=== PATIENT | female | born 1940 | race Caucasian/White ===

== ENCOUNTER → 2018-03-03 | Outpatient (CLI) | payer MEDICARE ==
[~2018-03-03] MED LIST: ACET325 PO; ASPI325EC PO; CALCAVITDA PO; CHRO200 PO; CODACE30 PO; DIPH50 PO; IBUP600 PO; MULVITMIND PO; ONDA4ODT MM; PROBIOTIC1 EAC1 PO; TRAM50 PO; Zofran Odt4 MG PO
== END | disposition home or self-care (01) ==
LOC: PLD 09:57 → LAB SHORT 09:57
DX: L57.8 Other skin changes due to chronic exposure to nonionizing radiation (principal); L08.89 Other specified local infections of the skin and subcutaneous tissue
CPT/HCPCS: 88305

== ENCOUNTER 2020-02-04 08:58 | Observation (INO) | payer MEDICARE ==
[~2020-02-04] VITALS: Ht 160 cm; Wt 52.2 kg
[2020-02-04 09:21] LABS: BASOPHILS ABSOLUTE AUTO 0.03 K/mm3 (0.00-0.23); BASOPHILS PERCENT AUTO 1 % (0-2); EOSINOPHILS PERCENT AUTO 2 % (0-6); Hematocrit 44.7 % (33.0-51.0); IMMATURE GRAN ABSOLUTE AUTO 0.02 K/mm3 (0.00-0.10); IMMATURE GRAN PERCENT AUTO 0 % (0-1); LYMPHOCYTES ABSOLUTE AUTO 1.34 K/mm3 (0.84-5.20); LYMPHOCYTES PERCENT AUTO 29 % (21-46); MONOCYTES ABSOLUTE AUTO 0.26 K/mm3 (0.16-1.47); MONOCYTES PERCENT AUTO 6 % (4-13); Mean Corpuscular HGB 30.1 pg (26.0-34.0); Mean Corpuscular HGB Conc 31.3 g/dL (31.5-36.5); Mean Corpuscular Volume 96 fL (80-100); Mean Platelet Volume 8.6 fL (9.1-12.4); NEUTROPHILS ABSOLUTE AUTO 2.91 K/mm3 (1.96-9.15); NEUTROPHILS PERCENT AUTO 63 % (41-73); Platelet Count 224 K/mm3 (150-400); RDW Coefficient Variation 11.8 % (11.7-14.2); RDW Standard Deviation 41.8 fL (35.1-46.3); Red Blood Cell Count 4.65 M/mm3 (3.80-5.20); White Blood Cell Count 4.66 K/mm3 (4.00-11.30)
[2020-02-04 09:42] LABS: Alanine Aminotransfer (ALT/SGP 25 U/L (12-78); Albumin, Blood 3.6 g/dL (3.4-5.0); Albumin/Globulin Ratio 0.8 (0.8-1.8); Alk Phos 80 U/L (50-136); Anion Gap 5 mmol/L (6-16); Aspartate Aminotrans (AST/SGOT 20 U/L (12-37); Bilirubin, Total 0.4 mg/dL (0.1-1.0); Blood Urea Nitrogen 15 mg/dL (8-24); CO2, Blood 26 mmol/L (21-32); Calcium, Blood 8.8 mg/dL (8.5-10.1); Chloride, Blood 109 mmol/L (98-108); Creatinine, Blood 0.71 mg/dL (0.40-1.00); Globulin, Blood 4.3 g/dL (2.2-4.0); Glomerular Filtration Rate >60 (60-); Glucose, Blood 148 mg/dL (70-99); Potassium, Blood 3.7 mmol/L (3.5-5.5); Sodium, Blood 140 mmol/L (136-145); Total Protein, Blood 7.9 g/dL (6.4-8.2)
[2020-02-04 09:43] LABS: Troponin I <0.015 ng/mL (0.000-0.040)
[2020-02-04 12:41] LABS: CHOL/HDL RATIO 3.4; Cholesterol 189 mg/dL (50-200); HDL Cholesterol 55 mg/dL (>39); LDL/HDL RATIO 2.1; Low Density Lipoprotein Chol 116 mg/dL (0-110); Triglycerides 88 mg/dL (30-160); Very Low Density Lipoprot Chol 17 mg/dL (6-32)
--- NOTE | 2020-02-04 13:05 | NUR ---
PT ARRIVED TO ROOM 333 FROM ER ACCOMPANIED BY SPOUSE. PT A/O X4 AND INDEPENDENT IN ROOM WITH ADL'S. ORIENTED TO ROOM AND CALL SYSTEM. PT DENIES PAIN AT THIS TIME, RESP EVEN AND UNLABORED, ON ROOM AIR. BED IN LOWEST POSITION AND CALL [place] IN REACH. WILL MONITOR.
--- NOTE | 2020-02-04 15:29 | NUR ---
Echocardiogram completed.
--- NOTE | 2020-02-04 18:36 | NUR ---
NO ACUTE CHANGES SINCE ARRIVAL TO ROOM, WILL CONTINUE TO MONITOR AND REPORT TO ONCOMING RN
--- NOTE | 2020-02-05 03:40 | NUR ---
SHIFT SUMMARY A/O, ABLE TO MAKE NEEDS KNOWN. COOPERATIVE WITH CARE. CALLS AND ANSWERS QUESTIONS APPROPRIATELY. INDEPENDENT IN ROOM. NO C/O CP OR SOB T/O NIGHT. TELE RUNNING SR /c PAC IN 70'S PER PCU GRILL COOK. APPEARED TO REST MUCH OF SHIFT. NO ACUTE CHANGES NOTED OVERNIGHT. BED IN LOWEST POSITION. CALL LIGHT AND BELONGINGS WITHIN REACH. WCTM. REPORT TO ONCOMING RN.
--- NOTE | 2020-02-05 11:04 | NUR ---
IV REMOVED. DISCHARGE INSTRUCTIONS GIVEN TO THE PATIENT. NO ACUTE CONCERNS AT TIME OF DISCAHRGE. PATIENT REQUESTED TO WALK INSTEAD OF BE WHEELED OUT. WALKED OUT WITH SPOUSE AND SUPERINTENDENT TESTS.
== END 2020-02-05 11:06 | disposition home or self-care (01) ==
LOC: ER 08:58 → MEDS 08:59 → ENPENDDIS 02-05 10:00 → MEDS 02-05 11:06
PROVIDERS: Emergency Medicine; ADMIT Internal Medicine
DX: R07.89 Other chest pain (principal); R03.0 Elevated blood-pressure reading, without diagnosis of hypertension; Z88.5 Allergy status to narcotic agent; Z88.0 Allergy status to penicillin; Z88.2 Allergy status to sulfonamides; Z88.8 Allergy status to other drugs, medicaments and biological substances; Z88.1 Allergy status to other antibiotic agents; I10 Essential (primary) hypertension; Z79.82 Long term (current) use of aspirin; Z79.899 Other long term (current) drug therapy
CPT/HCPCS: 36415; 71046; 80053; 80061; 84484; 85025; 93005; 93010; 93306; 96372; 99285-25; G0378; J1650

== ENCOUNTER → 2020-04-19 | Outpatient (CLI) | payer MEDICARE | LOC: LAB SHORT 19:01 → LAB 19:01 | DX: R30.0 Dysuria (principal) | CPT/HCPCS: 87077; 87086; 87186 ==

== ENCOUNTER → 2020-05-12 | Outpatient (CLI) | payer MEDICARE | END | disposition home or self-care (01) | LOC: LAB SHORT 14:53 → LAB 14:53 | DX: R30.0 Dysuria (principal) | CPT/HCPCS: 87077; 87086; 87186 ==

== ENCOUNTER → 2020-05-23 | Outpatient (CLI) | payer MEDICARE | END | disposition home or self-care (01) | LOC: LAB 19:20 → LAB SHORT 19:20 | DX: R30.0 Dysuria (principal) | CPT/HCPCS: 87077; 87086; 87186 ==

== ENCOUNTER → 2020-05-25 | Outpatient (CLI) | payer MEDICARE ==
[2020-05-25 12:10] LABS: Source, Urine Clean Catch
[2020-05-25 16:32] LABS: Bilirubin, Urine Neg (Neg); Blood, Urine 1+ (Neg); Glucose Qualitative, Urine Neg (Neg); Ketones, Urine Neg (Neg); Leukocyte Esterase, Urine 3+ (Neg); Nitrite, Urine Pos (Neg); Protein, Urine Neg (Neg); Urobilinogen, Urine NORM (Normal)
[2020-05-25 16:39] LABS: Appearance, Urine Hazy (Clear); Color, Urine Yellow (P-Yellow)
[2020-05-25 16:40] LABS: Bacteria Many /hpf; Squamous Epithelial Cells Few /hpf (Few); White Blood Cells, Urine 50-100 /hpf (0-5)
== END | disposition home or self-care (01) ==
LOC: LAB 12:08 → LAB SHORT 12:08
PROVIDERS: Family Medicine
DX: N20.0 Calculus of kidney (principal)
CPT/HCPCS: 81001; 87077; 87086; 87186

== ENCOUNTER 2022-02-27 08:56 | Day surgery (SDC) | payer MEDICARE ==
[~2022-02-27] VITALS: Ht 160 cm; Wt 53.9 kg
--- NOTE | 2022-02-27 09:55 | NUR ---
02/27/22 0955 Yesy Mcfadden @[id number], LEONARD @ [id number]
--- NOTE | 2022-02-27 11:20 | NUR ---
02/27/22 1120 DANY MARTINEZ PT USED BATHROOM PRIOR TO D/C
== END 2022-02-27 11:20 | disposition home or self-care (01) ==
LOC: ORSCSDS 08:56
PROVIDERS: Ophthalmology
PROC: 08RK3JZ Replacement of Left Lens with Synthetic Substitute, Percutaneous Approach (ICD-10-PCS; principal; 2022-02-27 10:30)
DX: H25.13 Age-related nuclear cataract, bilateral (principal); I10 Essential (primary) hypertension
CPT/HCPCS: J1100; J2001; J2250; J2405; J3010; J3301; J7040; V2632

== ENCOUNTER 2022-03-22 06:09 | Day surgery (SDC) | payer MEDICARE ==
[~2022-03-22] VITALS: Ht 160 cm; Wt 53.9 kg
--- NOTE | 2022-03-22 06:38 | NUR ---
03/22/22 0638 Mariam Smiley RIGHT EYE @0634 LEONARD RIGHT EYE @ 0635 BY [email or web address]
== END 2022-03-22 08:41 | disposition home or self-care (01) ==
LOC: ORSCSDS 06:09
PROVIDERS: Ophthalmology
PROC: 08RJ3JZ Replacement of Right Lens with Synthetic Substitute, Percutaneous Approach (ICD-10-PCS; principal; 2022-03-22 07:30)
DX: H25.11 Age-related nuclear cataract, right eye (principal); Z96.1 Presence of intraocular lens; H35.30 Unspecified macular degeneration; H40.059 Ocular hypertension, unspecified eye; I48.91 Unspecified atrial fibrillation; I10 Essential (primary) hypertension
CPT/HCPCS: J1100; J2001; J2250; J2405; J3301; J7040; V2632

== ENCOUNTER → 2023-03-14 | Outpatient (CLI) | payer MEDICARE ==
[~2023-03-14] MED LIST changes: +LEVO750 PO; +LOPE2C
== END | disposition home or self-care (01) ==
LOC: LAB 19:19 → LAB SHORT 19:19
DX: N39.0 Urinary tract infection, site not specified (principal)
CPT/HCPCS: 87077; 87086; 87186